=== PATIENT | female | born 1955 | race Caucasian/White ===

== ENCOUNTER 2018-03-18 10:39 | Outpatient (CLI) | payer OTHER ==
[~2018-03-18 10:39] MED LIST: AMOX1TAB12 PO; AMOX1TAB5; DEMEBORO OTIC DROPS OT; LOPRESSOR HCT 11 TAB; LOPRESSOR HCT 11 TAB PO; NEURONTIN300 MG PO; OSTERA TABLET1 EACH; TAMOXIFEN CITRA20 MG
== END 2018-03-18 10:54 | disposition home or self-care (01) ==
LOC: LAB 10:39
DX: J02.8 Acute pharyngitis due to other specified organisms (principal)

== ENCOUNTER 2021-08-14 07:29 | Outpatient (CLI) | payer OTHER | END 2021-08-14 09:35 | disposition home or self-care (01) | LOC: NUCLEAR 07:29 | PROVIDERS: ATTEND Internal Medicine Hematology & Oncology | DX: C50.411 Malignant neoplasm of upper-outer quadrant of right female breast (principal); Z17.0 Estrogen receptor positive status [ER+]; C79.51 Secondary malignant neoplasm of bone; Z88.2 Allergy status to sulfonamides | CPT/HCPCS: 78812; A9552 ==

== ENCOUNTER 2022-11-13 08:34 | Outpatient (CLI) | payer OTHER | END 2022-11-13 08:36 | disposition home or self-care (01) | LOC: NUCLEAR 08:34 | PROVIDERS: ATTEND Internal Medicine Hematology & Oncology | DX: C50.411 Malignant neoplasm of upper-outer quadrant of right female breast (principal); Z17.0 Estrogen receptor positive status [ER+]; C79.51 Secondary malignant neoplasm of bone | CPT/HCPCS: 78815; A9552 ==

== ENCOUNTER 2023-04-24 10:50 | Inpatient (IN) | payer OTHER ==
[~2023-04-24] VITALS: Ht 157.5 cm; Wt 63.5 kg
[2023-04-24] MEDS ORDERED: GLUMETZA1000 MG PO (11:39)
[2023-04-24] MEDS ORDERED: PROTONIX40 M1 PO (11:40)
[2023-04-24] MEDS ORDERED: SIMBASTATIN (11:40)
[2023-04-24] MEDS ORDERED: CELEBREX200MG PO (11:41)
[2023-04-24] MEDS ORDERED: [UNRECOGNIZED DRUG - OTHER] (11:41)
--- NOTE | 2023-04-24 11:41 | NUR ---
PTE ALERTA Y ORIENTADA X3 PTE DEL DR [place], REFIERE VENIR POR ABDOMEN INFLAMADO Y CON MUCHO DOLOR. SE MIDEN SV Y SE UBICA. PTE REFIERE DOLOR AL TACTO. PTE PADECE DE CANCER EN HUESOS.
[2023-04-24] MEDS ORDERED: ONDANSETRON HCL 2 MG/ML VIAL IV ONE (15:00)
[2023-04-24] MEDS ORDERED: FAMOTIDINE/PF 20 MG/2 ML VIAL IV ONE (15:00)
[2023-04-24] MEDS ORDERED: 0.9 % SODIUM CHLORIDE 500 ML IV ONE (15:00)
--- NOTE | 2023-04-24 15:30 | NUR ---
SE EDUCA A PTE SOBRE TX MEDICO ESTA REFIERE ENTENDER, SE ALBA MUESTRAS DE LABORATORIO UTILIZANDO MEDIDAS ASEPTICAS. SE COLOCA H/L BRUNA DE EDEMA. SE ADMINISTRAN MEDICAMENTOS LOS CUALES PTE TOLERA. SE NOTIFICAN ESTUDIOS DE RX Y CT PENDIENTES A REALIZAR.
[2023-04-24 16:07] LABS: INR 1.26; PARTIAL THROMBOPLASTIN TIME 29.9 SECONDS (22.0-34.0)
[2023-04-24 16:10] LABS: ALBUMIN 2.1 gm/dL (3.4-5.0); BILIRUBIN TOTAL 3.59 mg/dL (0.3-1.2); BILIRUBIN,CONJUGATED 3.2 mg/dL (0.0-0.2); BILIRUBIN,UNCONJUGATED 0.39 mg/dL (0.0-0.6); CALCIUM 9.3 mg/dL (8.5-10.1); CREATININE SERUM 0.93 mg/dL (0.55-1.02); GFR 59.78; GLOBULINA 4.8 G/DL (2.4-3.5); POTASSIUM 4.49 mEq/L (3.5-5.1); TOTAL PROTEIN 6.9 gm/dL (6.4-8.2)
[2023-04-24 16:18] LABS: HEMATOCRIT 44.9 % (36.0-45.00); HEMOGLOBIN 15.2 g/dL (12.0-15.00); MEAN CELL VOLUME 91.5 fL (80.00-100.00); MEAN CORPUSCULAR HGB CONC 33.9 g/dl (32.0-36.0); PLATELET COUNT 271 K/uL (150-450); RED BLOOD COUNT 4.91 M/uL (4.00-6.00)
[2023-04-24 16:23] LABS: PH,URINE 5.5 (5.0-8.0); URINE APPEARANCE Clear; URINE BILIRRUBIN Small (NEGATIVE); URINE BLOOD Negative; URINE COLOR Dark Yellow; URINE GLUCOSE Negative (NEGATIVE); URINE LEUKOCYTE Small; URINE NITRATE Positive; URINE PROTEIN 30 (NEGATIVE)
[2023-04-24 16:26] LABS: URINE BACTERIA 347.7 uL (0.0-1933); URINE EPITHELIAL CELLS 9.7 uL (0.0-38.8); URINE RBC 16.2 uL (0.0-20.8); URINE WBC 3.8 uL (0.0-23.2)
[2023-04-24] MEDS ORDERED: CEFTRIAXONE SODIUM 1,000 MG VIAL IV ONE (18:15)
[2023-04-24] MEDS ORDERED: METRONIDAZOLE/SODIUM CHLORIDE 100 ML IV SCH (20:26)
[2023-04-24] MEDS ORDERED: INSULIN LISPRO 1,000 UNIT/10 ML UNITS SUBCUTANEO PRN (20:30)
[2023-04-24] MEDS ORDERED: ALBUMIN HUMAN-25 0.25GM/ML (50ML) VIAL IV SCH (20:30)
[2023-04-24] MEDS ORDERED: DEXTROSE 50 % IN WATER 0.5 G/ML DISP.SYRIN IV PRN (20:30)
[2023-04-24] MEDS ORDERED: ONDANSETRON HCL 4 MG in 0.9 % SODIUM CHLORIDE 50 ML IV PRN (20:30)
[2023-04-24] MEDS ORDERED: FUROsemide 20 MG/2 ML VIAL IV SCH (21:00)
[2023-04-25 00:28] LABS: INR 1.23; PARTIAL THROMBOPLASTIN TIME 29.4 SECONDS (22.0-34.0); PROTHROMBIN TIME 12.7 SECONDS (9.0-11.5)
[2023-04-25] MEDS ORDERED: CEFTRIAXONE SODIUM 2,000 MG in 0.9 % SODIUM CHLORIDE 100 ML IV SCH (09:00)
[2023-04-25] MEDS ORDERED: ENOXAPARIN SODIUM 40 MG/0.4 ML SYRINGE SUBCUTANEO SCH (09:00)
[2023-04-25] MEDS ORDERED: PANTOPRAZOLE SODIUM 40 MG/VIAL VIAL IV SCH (09:00)
[2023-04-25] MEDS ORDERED: SPIRONOLACTONE 25 MG TABLET PO SCH (09:00)
[2023-04-25 21:10] LABS: BILI PERITONEAL FLUID 0.92 mg/dl; CREA PERITONEAL FLUID 0.65 mg/dl; TP PERITONEAL FLUID 1.5 g/dl
[2023-04-27] MEDS ORDERED: OxyCODONE HCL/APAP UD (PERCOCET) PO PRN (16:30)
[2023-04-27] MEDS ORDERED: MAG HYDROX/ALUMINUM HYD/SIMETH 30 ML BLIST.PACK PO SCH (17:00)
[2023-04-28] MEDS ORDERED: ONDANSETRON HCL 2 MG/ML VIAL IV STA (18:20)
[2023-04-28] MEDS ORDERED: SPIRONOLACTONE25 MG PO (18:47)
[2023-04-28] MEDS ORDERED: PROTONIX40 MG PO (18:47)
[2023-04-28] MEDS ORDERED: PEPCID AC20 MG PO (18:47)
[2023-04-28] MEDS ORDERED: ZOFRAN8 MG PO (18:47)
== END 2023-04-28 20:38 | disposition home or self-care (01) | DRG 689 ==
LOC: ER 10:51 → MEDJ 20:42
PROVIDERS: General Practice; Nurse Practitioner Family; Radiology Vascular & Interventional Radiology; ADMIT Internal Medicine; ATTEND Internal Medicine
PROC: BW21ZZZ Computerized Tomography (CT Scan) of Abdomen and Pelvis (ICD-10-PCS; 2023-04-24)
PROC: 0W9G3ZZ Drainage of Peritoneal Cavity, Percutaneous Approach (ICD-10-PCS; principal; 2023-04-25)
DX: N39.0 Urinary tract infection, site not specified (principal); K65.9 Peritonitis, unspecified; C79.51 Secondary malignant neoplasm of bone; C78.7 Secondary malignant neoplasm of liver and intrahepatic bile duct; R18.8 Other ascites; N20.0 Calculus of kidney; E86.0 Dehydration; E11.9 Type 2 diabetes mellitus without complications; Z79.4 Long term (current) use of insulin; I10 Essential (primary) hypertension; E78.5 Hyperlipidemia, unspecified; Z20.822 Contact with and (suspected) exposure to COVID-19; C50.919 Malignant neoplasm of unspecified site of unspecified female breast

== ENCOUNTER 2023-05-04 22:35 | Inpatient (IN) | payer OTHER ==
[~2023-05-04] VITALS: Ht 160 cm; Wt 68.0 kg
[~2023-05-04 22:35] MED LIST changes: +CELEBREX200MG PO; +GLUMETZA1000 MG PO; +PEPCID AC20 MG PO; +PROTONIX40 M1 PO; +PROTONIX40 MG PO; +SIMBASTATIN; +SPIRONOLACTONE25 MG PO; +ZOFRAN8 MG PO; +[UNRECOGNIZED DRUG - OTHER]
[2023-05-04] MEDS ORDERED: PROTONIX40 M1 PO (22:53)
[2023-05-04] MEDS ORDERED: ALDACTONE25 MG PO (22:53)
[2023-05-04] MEDS ORDERED: PEPCID20 MG PO (22:54)
[2023-05-04] MEDS ORDERED: VITACEL TABLET1 EACH PO (22:54)
[2023-05-04] MEDS ORDERED: VERZENIO150 MG PO (22:54)
[2023-05-04] MEDS ORDERED: INSULIN GL100 UNIT/3 SUBCUTANEO (22:54)
--- NOTE | 2023-05-04 22:55 | NUR ---
PACIENTE FEMINA ALERTA Y ORIENTADA EN TIEMPO, LUGAR Y PERSONA EN COMPANIA DE FAMILIAR EN AMBULANCIA QUIENES VERBALIZAN QUE PACIENTE LLEVA VARIOS HACKETT CON DEBILIDAD, POCO APETITO, FIEBRE, DOLOR ABDOMINAL, SE OBESRVA EL MISMO DISTENTIDO AL PALPAR PACIENTE VERBALIZA SENTIR DOLOR, PACIENTE CON HX DE CANCER DE HUESO E HIGADO. SE MONITOREAN S/V, SE LE REALIZA EKG Y SE LE PRESENTA A DR VILLARREAL.
[2023-05-05] MEDS ORDERED: MULTIVIT INFUSN,ADULT 4,VIT K 10 ML VIAL IV STA (00:17)
[2023-05-05] MEDS ORDERED: FAMOTIDINE/PF 20 MG/2 ML VIAL IV PUSH STA (00:18)
[2023-05-05] MEDS ORDERED: KETOROLAC TROMETHAMINE 30 MG VIAL IV STA (00:18)
[2023-05-05] MEDS ORDERED: 0.9 % SODIUM CHLORIDE 1,000 ML IV ONE (00:30)
--- NOTE | 2023-05-05 00:38 | NUR ---
SE REALIZA LABORATORIOS Y SE ADMINISTRA MEDICAMENTOS MALIKA ORDEN MEDICA, BAJO MEDIDAS ASEPTICAS. SE ORIENTA A PTE SOBRE TRATAMIENTO MEDICO, QUIEN REFIERE ENTENDER Y ACEPTAR.
[2023-05-05 00:49] LABS: HEMATOCRIT 45.1 % (36.0-45.00); HEMOGLOBIN 15.8 g/dL (12.0-15.00); MEAN CELL VOLUME 90.3 fL (80.00-100.00); MEAN CORPUSCULAR HEMOGLOBIN 31.6 pg (27.00-32.0); PLATELET COUNT 213 K/uL (150-450); RED CELL DISTRIBUTION WIDTH 18.1 % (11.5-14.5)
[2023-05-05 01:07] LABS: INR 1.89; PARTIAL THROMBOPLASTIN TIME 32.4 SECONDS (22.0-34.0)
[2023-05-05 01:29] LABS: PROTHROMBIN TIME 18.9 SECONDS (9.0-11.5)
[2023-05-05 01:59] LABS: AMYLASE 74 U/L (25-115)
[2023-05-05 01:59] LABS: PH,URINE 5.5 (5.0-8.0); URINE APPEARANCE Clear; URINE BILIRRUBIN Large (NEGATIVE); URINE BLOOD Negative; URINE COLOR Dark Yellow; URINE GLUCOSE Negative (NEGATIVE); URINE LEUKOCYTE Small; URINE NITRATE Positive; URINE PROTEIN 30 (NEGATIVE)
[2023-05-05 02:03] LABS: URINE EPITHELIAL CELLS 9.1 uL (0.0-38.8); URINE RBC 18.2 uL (0.0-20.8); URINE WBC 6.4 uL (0.0-23.2)
[2023-05-05 02:09] LABS: LIPASE 100 U/L (13-75)
[2023-05-05 02:18] LABS: BILIRUBIN,CONJUGATED 8.22 mg/dL (0.0-0.2); CALCIUM 8.4 mg/dL (8.5-10.1); CREATININE SERUM 1.15 mg/dL (0.55-1.02); GLOBULINA 3.9 G/DL (2.4-3.5); POTASSIUM 5.07 mEq/L (3.5-5.1); TOTAL PROTEIN 5.9 gm/dL (6.4-8.2)
[2023-05-05 02:22] LABS: BILIRUBIN,UNCONJUGATED 2.17 mg/dL (0.0-0.6)
[2023-05-05 02:23] LABS: BILIRUBIN TOTAL 10.39 mg/dL (0.3-1.2); GFR 46.65
--- NOTE | 2023-05-05 07:24 | NUR ---
SE RECIBE PTE DEL TURNO ANTERIOR ALERTA Y ORIENTADA X3 EN CAMA CON BARANDAS ELEVADAS. PTE CONSULTADA CON CAMARGO LO.
[2023-05-05] MEDS ORDERED: ONDANSETRON HCL 2 MG/ML VIAL IV PRN (09:30)
[2023-05-05] MEDS ORDERED: FAMOTIDINE/PF 20 MG in 0.9 % SODIUM CHLORIDE 8 ML IV PUSH SCH (09:30)
[2023-05-05] MEDS ORDERED: FUROsemide 20 MG/2 ML VIAL IV SCH (09:31)
[2023-05-05] MEDS ORDERED: CEFTRIAXONE SODIUM 2,000 MG VIAL IV SCH (20:35)
[2023-05-06] MEDS ORDERED: SPIRONOLACTONE 50 MG TABLET PO SCH (19:05)
[2023-05-08] MEDS ORDERED: PEPCID20 MG PO (14:44)
[2023-05-08] MEDS ORDERED: SPIRONOLACTONE50 MG PO (14:44)
[2023-05-08] MEDS ORDERED: PROTONIX40 M1 PO (14:45)
[2023-05-08] MEDS ORDERED: VITACEL TABLET1 EACH PO (14:45)
== END 2023-05-08 16:33 | disposition home or self-care (01) | DRG 690 ==
LOC: ER 22:35 → MEDI 05-05 10:50 → SEC-K 05-05 10:50 → MEDI 05-06 00:03
PROVIDERS: General Practice; ADMIT Internal Medicine Hematology & Oncology; ATTEND Internal Medicine Hematology & Oncology
PROC: 02HV33Z Insertion of Infusion Device into Superior Vena Cava, Percutaneous Approach (ICD-10-PCS; 2023-05-05)
PROC: 0W9G3ZZ Drainage of Peritoneal Cavity, Percutaneous Approach (ICD-10-PCS; principal; 2023-05-08)
DX: N39.0 Urinary tract infection, site not specified (principal); R18.8 Other ascites; C78.7 Secondary malignant neoplasm of liver and intrahepatic bile duct; C79.51 Secondary malignant neoplasm of bone; E11.9 Type 2 diabetes mellitus without complications; Z79.4 Long term (current) use of insulin; I10 Essential (primary) hypertension; C50.919 Malignant neoplasm of unspecified site of unspecified female breast